=== PATIENT | male | born 1985 | race Two or more races ===

== ENCOUNTER 2016-12-21 15:29 | Emergency (ER) | payer BC, MEDICAID ==
[2016-12-21] MEDS ORDERED: ONDANSETRON HCL INJ/PF 4 MG/2 ML SDV IV ONE (15:57)
[2016-12-21] MEDS ORDERED: KETOROLAC TROMETHAMINE INJ/PF 30 MG/1 ML SDV IV ONE (15:57)
[2016-12-21] MEDS ORDERED: NORMAL SALINE 1000 ML 1,000 ML IV ONE ×2 (15:57→16:55)
[2016-12-21] MEDS ORDERED: DEXAMETHASONE SOD PHOS INJ 10 MG/1 ML VIAL IV ONE (15:58)
--- NOTE | 2016-12-21 15:59 | ER Document Report ---
HPI - HPI Patient complains to provider of: sore throat, fever Onset: This morning Onset/Duration: Gradual Quality of pain: Achy Pain Level: 5 Context: Patient presents complaining of sore throat, fever, body aches, cough with nausea and vomiting. Patient states he is vomited 5 times today. Pt does report recent sick contacts. Patient states he was evaluated at the urgent care and had testing but he is uncertain of what the testing shows. Patient states he was given a prescription for Zofran and Augmentin. Associated Symptoms: Body/muscle aches, Chills, Nonproductive cough, Fever, Nausea, Vomiting, Sore throat. denies: Earache Exacerbated by: Denies Relieved by: Denies Similar symptoms previously: No Recently seen / treated by doctor: Yes - ROS ROS below otherwise negative: Yes Systems Reviewed and Negative: Yes All other systems reviewed and negative - CONSTITUTIONAL Constitutional: REPORTS: Fever, Chills - EENT EENT: REPORTS: Sore Throat. DENIES: Ear Pain - NEURO Neurology: DENIES: Headache - RESPIRATORY Respiratory: REPORTS: Coughing. DENIES: Trouble Breathing - GASTROINTESTINAL Gastrointestinal: REPORTS: Nausea, Patient vomiting. 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 IN LAST 30 DAYS: No - HEENT HEENT: Atraumatic, Normocephalic, Pharyngeal Tenderness, Pharyngeal Erythema. negative: Tympanic Membrane Red, Tympanic Membrane Bulging - NECK Neck: Lymphadenopathy-Left, Lymphadenopathy-Right - RESPIRATORY Respiratory: Breath Sounds Normal, No Respiratory Distress, Chest Non-Tender O2 Sat by Pulse Oximetry: 97 - CARDIOVASCULAR Cardiovascular: Regular Rate, Regular Rhythm, No Murmur - GI/ABDOMEN Gastrointestinal: Abdomen Soft, Abdomen Non-Tender, No Organomegaly - BACK Back: Normal Inspection. negative: CVA Tenderness-Right, CVA Tenderness-Left - MUSCULOSKELETAL/EXTREMETIES Musculoskeletal/Extremeties: MAITE, MAGED - NEURO Level of Consciousness: Awake, Alert, Appropriate Motor/Sensory: No Motor Deficit - DERM Integumentary: Warm, Dry, No Rash Course - Re-evaluation Re-evalutation: 12/21/16 15:58 Spoke with provider that saw patient at the urgent care this morning. Provider states that patient tested positive for strep and was given Augmentin and Zofran and had a negative flu test in the office today. Pt's presentation is consistent with strep pharyngitis. Will treat patient symptomatically. 12/21/16 17:00 Patient looks to feel improved, no vomiting. Patient currently afebrile. - Vital Signs Vital signs: Temp Pulse Resp BP Pulse Ox 102.6 F H 102 H 14 127/56 H 97 12/21/16 15:33 12/21/16 15:33 12/21/16 15:33 12/21/16 15:33 12/21/16 15:33 Discharge - Discharge Clinical Impression: History of strep pharyngitis, Sore throat Fever Qualifiers: Fever type: unspecified Qualified Code(s): R50.9 - Fever, unspecified Nausea & vomiting Qualifiers: Vomiting type: unspecified Vomiting Intractability: non-intractable Qualified Code(s): R11.2 - Nausea with vomiting, unspecified Condition: Stable Disposition: HOME, SELF-CARE Instructions: Acetaminophen, Intravenous (IV) Fluids ([facility]), Vomiting ([facility]), Antinausea Medication ([facility]), Strep Throat ([facility]), Antibiotic Shot ([facility]), Toradol Injection ([facility]) Additional Instructions: Return immediately for any new or worsening symptoms Followup with your primary care provider, call tomorrow to make a followup appointment Take Tylenol and Motrin [id number] as directed to help with fever and body aches Take your nausea medicine that you have prescribed as directed. You were given a shot of an antibiotic, you do not need to take your prescription Augmentin any longer. Forms: Return to Work Referrals: [facility] [Provider Group] - Follow up as needed
[2016-12-21] MEDS ORDERED: PENICILLIN G BENZATHINE 1.2 MILLION UNIT/2 ML DISP.SYRIN IM ONE (16:52)
[2016-12-21] MEDS ORDERED: ACETAMINOPHEN 325 MG TABLET PO ONE (17:28)
[2016-12-21 18:14] VITALS: BP 111/64
== END 2016-12-21 18:00 | disposition home or self-care (01) ==
LOC: ER 15:29
DX: J02.0 Streptococcal pharyngitis (principal); R50.9 Fever, unspecified; R11.2 Nausea with vomiting, unspecified; M79.1 Myalgia; R05 Cough; R51 Headache; R59.0 Localized enlarged lymph nodes
CPT/HCPCS: 99283; 96372; 96361; 96374; 96375; J1885; J0561; J2405; J7030; J1100